=== PATIENT | male | born 1975 | race Caucasian/White ===

== ENCOUNTER → 2021-07-26 | Outpatient (CLI) | payer OTHER | LOC: CAT 10:53 | PROVIDERS: ATTEND Family Medicine | DX: Z13.6 Encounter for screening for cardiovascular disorders (principal); I25.10 Atherosclerotic heart disease of native coronary artery without angina pectoris; E78.00 Pure hypercholesterolemia, unspecified ==

== ENCOUNTER → 2021-09-04 | Outpatient (CLI) | payer BC | LOC: CAT 09:56 | PROVIDERS: ATTEND Family Medicine | DX: I71.2 Thoracic aortic aneurysm, without rupture (principal) ==